=== PATIENT | female | born 1980 | race African-American/Black ===

== ENCOUNTER 2018-04-30 14:25 | Emergency (ER) | payer MEDICAID ==
[~2018-04-30] VITALS: Ht 170.2 cm; Wt 83.0 kg
[2018-04-30 17:26] LABS: CLARITY URINE CLEAR (CLEAR); COLOR URINE YELLOW (YELLOW); KETONES URINE 1+ (NEGATIVE); LEUKOCYTE ESTERASE URINE NEGATIVE (NEGATIVE); NITRITE URINE NEGATIVE (NEGATIVE); OCCULT BLOOD URINE 2+ (NEGATIVE); PH URINE 5.5 (4.5-8.0); PROTEIN URINE NEGATIVE (NEGATIVE); SPECIFIC GRAVITY URINE 1.028 (1.005-1.030); UROBILINOGEN URINE 0.2 E.U./dL (0.2-1.0)
[2018-04-30 20:21] VITALS: BP 137/79
== END 2018-05-01 00:37 | disposition left against medical advice (07) ==
LOC: ER 14:25
DX: Z53.21 Procedure and treatment not carried out due to patient leaving prior to being seen by health care provider (principal); N93.8 Other specified abnormal uterine and vaginal bleeding; Z98.890 Other specified postprocedural states
CPT/HCPCS: 81025

== ENCOUNTER 2018-07-11 13:30 | Emergency (ER) | payer MEDICAID ==
[~2018-07-11] VITALS: Ht 170.2 cm; Wt 75.0 kg
[2018-07-11 13:32] VITALS: BP 122/78
== END 2018-07-11 18:19 | disposition left against medical advice (07) ==
LOC: ER 13:30
DX: R10.9 Unspecified abdominal pain (principal); Z53.21 Procedure and treatment not carried out due to patient leaving prior to being seen by health care provider